=== PATIENT | female | born 1960 | race Caucasian/White ===

== ENCOUNTER 2024-01-30 11:37 | Emergency (ER) | payer OTHER, SELFPAY ==
[2024-01-30 11:38] VITALS: BP 165/89
--- NOTE | 2024-01-30 12:04 | ED.GENMED ---
History of Present Illness
General
Chief Complaint: Flank Pain
Time Seen by Provider: 01/30/24 11:50
History of Present Illness
History of Present Illness:
63-year-old female presents to the emergency department for evaluation of right flank pain that has been ongoing for the past 3 days, had cloudy urine earlier this week but this is since resolved. No fevers or chills. Does not feel comparable to
past kidney stone. Denies any nausea, vomiting, or diarrhea
Past History
Past History
ED Past Medical History: Fibromyalgia, GERD, HTN, Hypercholesterolemia, NIDDM, Psychiatric (Anxiety) and Other (Endometriosis, irritable bowel disease, chronic back pain)
ED Past Surgical History: , Orthopedic and Other (Adhesions)
Social History
Tobacco: Smoker
Alcohol: None
Drug: None
Personal:
Living: with family
Employment: Employed
Family History
Family History: Diabetes; Negative CAD
Review of Systems
Review of Systems
Allergies reviewed?: Yes
All Other Systems: ROS reviewed and negative except as documented in HPI and ROS
Phy Exam
Physical Exam
Physical Exam:
GEN: Well appearing, NAD, WDWN
HEENT: Oral mucosa moist, no scleral icterus
Cardiac: Regular rate
Lung: No respiratory distress, no tachypnea
Abdomen: Soft, grossly nontender to the anterior abdomen. No CVA tenderness however there is point tenderness to the right lumbar paraspinous musculature
MSK: No gross deformity or injuries
Skin: Good color, no pallor or jaundice, no rashes
Neuro: AO x3, moves all extremities freely
Psych: Calm, cooperative
Course
Orders/Labs/Results
Orders:
Orders
01/30/24 12:04
CT Abd/pel Without Iv Or Oral Urgent
Comment:
Reason For Exam: R flank pain hx of stones
Ketorolac [Toradol] 60 mg IM NOW STA
01/30/24 12:07
Urinalysis Reflex To Culture Urgent
Date Specimen was Collected: 01/30/24
Time Specimen was Collected: 12:06
Vital Signs
Initial and Last Documented VS:
Initial Vital Signs
Temp Pulse Resp BP Pulse Ox
98.0 F 99 18 165/89 98
01/30/24 11:38 01/30/24 11:38 01/30/24 11:38 01/30/24 11:38 01/30/24 11:38
Last Documented Vital Signs
Temp Pulse Resp BP Pulse Ox
98.0 F 87 16 158/97 98
01/30/24 11:38 01/30/24 13:55 01/30/24 13:55 01/30/24 13:55 01/30/24 13:55
MDM/Problems Addressed
MDM/Problems Addressed:
Urinalysis is bland and CT shows no evidence for obstructive uropathy at this time. Likely musculoskeletal in nature, patient's pain resolved after Toradol
*Critical Care Note
Total Time (30-74mins, 75-104mins- exclusive of procedures): Not Applicable
ED Attending Note
-
Portions of this chart may have been created with voice recognition software.� Occasional wrong word or��sound alike� substitutions may have occurred due to the inherent limitations of voice recognition software.
Discharge Plan
Departure
Patient Disposition: Home (Routine Discharge)
Date of Disposition: 01/30/24
Time of Disposition: 13:42
Patient with high blood pressure during this ER visit?: No
Discharge Problem:
Acute right flank pain
Instructions: Flank Pain (DC)
Prescriptions:
New
diclofenac sodium 75 mg tablet,delayed release (DR/EC)
75 mg PO BID PRN (Reason: Pain) Qty: 20 0RF
No Action
citalopram 20 MG tablet
40 mg PO DAILY
atorvastatin 40 MG tablet
40 mg PO HS
trazodone 100 MG tablet
100 mg PO HS
canagliflozin [Invokana] 100 MG tablet
100 mg PO DAILY
alprazolam 0.25 MG tablet
0.25 mg PO Q8HPRN PRN (Reason: anxiety)
Patient Comments:
11/08/2020: last filled 10/20/20, 30 tabs for 30 days from [facility]
amlodipine 5 MG tablet
5 mg PO DAILY
aspirin 81 MG tablet,chewable
81 mg PO DAILY
cholecalciferol (vitamin D3) 2,000 UNITS tablet
2,000 units PO DAILY
cephalexin 500 MG capsule
500 mg PO BID Qty: 10 0RF
tramadol 50 MG tablet
50 mg PO Q8 PRN (Reason: pain) Qty: 20 0RF
phenazopyridine 100 MG tablet
100 mg PO BID Qty: 30 0RF
Referrals:
Italo Pompa MD [Family Provider] -
Activity Restrictions/Additional Instructions:
Follow up with your primary care doctor if symptoms persist
Interventions
Interventions:
*Risk Screen - Suicide Last Done: 01/30/24 11:38
*General Assessment Last Done: 01/30/24 11:38
*Neglect/Abuse Screening Last Done: 01/30/24 11:38
ED- Fall Risk Assessment Last Done: 01/30/24 13:56
*ED COVID-19 Vaccine History Last Done: 01/30/24 11:38
*Nursing Disposition Last Done: 01/30/24 13:56
ED-Female Genitourinary Assessment Last Done: 01/30/24 12:13
Discharge Date and Time
Discharge Date/Time: 01/30/24 13:57
Print Language: MEXICAN
[2024-01-30] MEDS: TORADOL 60 MG IM (12:10)
[2024-01-30 13:12] LABS: Urine Albumin Negative (Neg - Trace); Urine Bilirubin Negative (Negative); Urine Character Clear (Clear); Urine Color Yellow; Urine Glucose Negative (Negative); Urine Ketone Negative (Negative); Urine Leukocyte Negative (Negative); Urine Nitrite Negative (Negative); Urine Occult Blood Negative (Negative); Urine Specific Gravity 1.015 (<1.030); Urine Urobilinogen Negative (Neg - 1+)
[2024-01-30 13:55] VITALS: BP 158/97
== END 2024-01-30 13:57 | disposition home or self-care (01) ==
LOC: EMR 11:37
PROVIDERS: Physician Assistant; EMERGENCY PHYSICIAN Emergency Medicine; FAMILY PHYSICIAN Family Medicine
DX: R10.9 Unspecified abdominal pain (principal); I10 Essential (primary) hypertension; E11.9 Type 2 diabetes mellitus without complications; E78.00 Pure hypercholesterolemia, unspecified; F41.9 Anxiety disorder, unspecified; K21.9 Gastro-esophageal reflux disease without esophagitis; K58.9 Irritable bowel syndrome, unspecified; G89.29 Other chronic pain; M54.9 Dorsalgia, unspecified; M79.7 Fibromyalgia; F17.200 Nicotine dependence, unspecified, uncomplicated; Z87.442 Personal history of urinary calculi; Z79.82 Long term (current) use of aspirin; Z88.5 Allergy status to narcotic agent; Z88.8 Allergy status to other drugs, medicaments and biological substances; Z88.6 Allergy status to analgesic agent; Z91.030 Bee allergy status
CPT/HCPCS: 99284; 96372; 74176; 81003

== ENCOUNTER 2024-04-10 16:53 | Emergency (ER) | payer OTHER, SELFPAY ==
[2024-04-10 16:58] VITALS: BP 152/89
--- NOTE | 2024-04-10 18:37 | ED.GENMED ---
History of Present Illness
General
Chief Complaint: Back Pain
Source: patient
Exam Limitations: none
Time Seen by Provider: 04/10/24 18:24
History of Present Illness
History of Present Illness:
63-year-old female presents with worsening lower back pain that radiates down the right leg over the past 4 days. She notes it hurts in the buttock down the outer aspect of the leg into the ankle. No bowel or bladder dysfunction. No perianal
anesthesia. No fever. She has a history of chronic pain. She is on Lyrica and hydrocodone as well as tramadol. She has taken these without any improvement of her discomfort.
Past History
Past History
ED Past Medical History: Fibromyalgia, GERD, HTN, Hypercholesterolemia, NIDDM, Psychiatric (Anxiety) and Other (Endometriosis, irritable bowel disease, chronic back pain)
ED Past Surgical History: , Orthopedic and Other (Adhesions)
Social History
Tobacco: Smoker
Alcohol: None
Drug: None
Personal:
Living: with family
Employment: Employed
Family History
Family History: Diabetes; Negative CAD
Phy Exam
Physical Exam
Physical Exam:
General: Well-appearing uncomfortable female no acute respiratory distress
HEENT: Normocephalic atraumatic
Musculoskeletal exam: No deformity to the legs. Good passive range of motion to the right leg mildly diffusely tender about the right leg
Neurologic: Good sensation right leg. Bilateral patellar reflexes are 2+. Good strength to the right leg
Skin is warm and intact
Course
Orders/Labs/Results
Orders:
Orders
04/10/24 18:36
Dexamethasone Sod Phosphate [Decadron] 10 mg IV NOW STA
HYDROmorphone [Dilaudid] 1 mg IV NOW STA
Ketorolac [Toradol] 15 mg IV NOW STA
04/10/24 20:47
diazePAM [Valium Injection] 5 mg IV NOW STA
Vital Signs
Initial and Last Documented VS:
Initial Vital Signs
Temp Pulse Resp BP Pulse Ox
98.3 F 90 20 152/89 96
04/10/24 16:58 04/10/24 16:58 04/10/24 16:58 04/10/24 16:58 04/10/24 16:58
Last Documented Vital Signs
Temp Pulse Resp BP Pulse Ox
98.3 F 90 20 148/110 91
04/10/24 16:58 04/10/24 16:58 04/10/24 16:58 04/10/24 19:00 04/10/24 19:30
MDM/Problems Addressed
Differential Diagnosis Includes:
Lower back pain that radiates down the right leg. Suspect radiculopathy. No signs of cauda equina. No fever to suggest infectious source.
Will attempt to help improve discomfort.
*Critical Care Note
Total Time (30-74mins, 75-104mins- exclusive of procedures): Not Applicable
Update Note
Update Note:
Patient did feel some relief after medicine. I suspect radiculopathy of the right lower extremity. Will prescribe prednisone to take at home. She will follow-up with her doctor as planned
ED Attending Note
-
Portions of this chart may have been created with voice recognition software.� Occasional wrong word or��sound alike� substitutions may have occurred due to the inherent limitations of voice recognition software.
Discharge Plan
Departure
Patient Disposition: Home (Routine Discharge)
Date of Disposition: 04/10/24
Time of Disposition: 20:47
Patient with high blood pressure during this ER visit?: No
Discharge Problem:
Acute lumbar radiculopathy
Instructions: Radiculopathy (DC)
Prescriptions:
New
prednisone 10 mg Tablet
See Rx Instructions .ROUTE .COMPLEX Qty: 30 0RF
Rx Instructions:
Take By Mouth:
40 mg daily x3 days, 30 mg daily x3 days,
20 mg daily x3 days, 10 mg daily x3 days.
No Action
citalopram 20 MG tablet
40 mg PO DAILY
atorvastatin 40 MG tablet
40 mg PO HS
trazodone 100 MG tablet
100 mg PO HS
canagliflozin [Invokana] 100 MG tablet
100 mg PO DAILY
alprazolam 0.25 MG tablet
0.25 mg PO Q8HPRN PRN (Reason: anxiety)
Patient Comments:
11/08/2020: last filled 10/20/20, 30 tabs for 30 days from [facility]
amlodipine 5 MG tablet
5 mg PO DAILY
aspirin 81 MG tablet,chewable
81 mg PO DAILY
cholecalciferol (vitamin D3) 2,000 UNITS tablet
2,000 units PO DAILY
cephalexin 500 MG capsule
500 mg PO BID Qty: 10 0RF
tramadol 50 MG tablet
50 mg PO Q8 PRN (Reason: pain) Qty: 20 0RF
phenazopyridine 100 MG tablet
100 mg PO BID Qty: 30 0RF
diclofenac sodium 75 mg tablet,delayed release (DR/EC)
75 mg PO BID PRN (Reason: Pain) Qty: 20 0RF
Referrals:
Izzy Dupree PA-C [Family Provider] -
Activity Restrictions/Additional Instructions:
Take prednisone as directed. Continue other current medications. Follow-up as planned with your doctor
Interventions
Interventions:
*Risk Screen - Suicide Last Done: 04/10/24 18:52
*General Assessment Last Done: 04/10/24 16:58
*Neglect/Abuse Screening Last Done: 04/10/24 18:52
ED- Fall Risk Assessment Last Done: 04/10/24 18:52
*ED COVID-19 Vaccine History Last Done: 04/10/24 18:52
ED-Musculoskeletal Assessment Last Done: 04/10/24 18:52
Discharge Date and Time
Print Language: JAPANESE
[2024-04-10 18:52] VITALS: BMI 30.6
[2024-04-10 18:54] VITALS: BP 123/87
[2024-04-10 19:00] VITALS: BP 148/110
[2024-04-10] MEDS: DILAUDID 1 MG IV (19:02)
[2024-04-10] MEDS: TORADOL 15 MG IV (19:04)
[2024-04-10] MEDS: DECADRON 10 MG IV (19:06)
[2024-04-10 20:00] VITALS: BP 125/56
[2024-04-10] MEDS: VALIUM INJECTION 5 MG IV (21:02)
[2024-04-10 21:06] VITALS: BP 140/76
== END 2024-04-10 21:06 | disposition home or self-care (01) ==
LOC: EMR 16:53
PROVIDERS: EMERGENCY PHYSICIAN Emergency Medicine; FAMILY PHYSICIAN Physician Assistant
DX: M54.16 Radiculopathy, lumbar region (principal)
CPT/HCPCS: 99284; 96374; 96375 ×3

== ENCOUNTER 2024-09-13 16:08 | Emergency (ER) | payer OTHER, SELFPAY ==
[2024-09-13 16:22] VITALS: BP 138/84
[2024-09-13 16:46] LABS: % Basophils 0.7 % (0-2); % Eosinophils 0.8 % (0-6); % Immature Granulocytes 0.2 % (0-0.5); % Lymphocytes 20.2 % (20.5-51.1); % Monocytes 6.9 % (1.7-9.3); % Neutrophils 71.2 % (42.2-75.2); Absolute Basophils 0.1 10^3/uL (0-0.2); Absolute Eosinophils 0.1 10^3/uL (0-0.7); Absolute Lymphocytes 2.2 10^3/uL (1.2-3.4); Absolute Monocytes 0.8 10^3/uL (0.1-0.6); Absolute Neutrophils 7.8 10^3/uL (1.4-6.5); Hematocrit 46.6 % (37.0-47.0); Hemoglobin 15.8 g/dL (12.0-16.0); Mean Corp Hgb Conc. 33.9 g/dL (33.0-37.0); Mean Corpuscular Hgb 30.6 pg (27.0-31.0); Mean Corpuscular Volume 90.1 fL (81.0-99.0); Mean Platelet Volume 9.1 fL (7.4-10.4); Nucleated Red Blood Cells % 0 %; Platelet Count 421 10^3/uL (130-400); Red Blood Cell Count 5.17 10^6/uL (4.20-5.40); Red Cell Dist. Width 13.4 % (11.5-14.5)
[2024-09-13 16:59] LABS: Lipase 115 U/L (23-300)
[2024-09-13 18:23] VITALS: BP 147/75
--- NOTE | 2024-09-13 20:18 | ED.GENMED ---
History of Present Illness
General
Chief Complaint: Abdominal Pain
Source: patient and spouse
Time Seen by Provider: 09/13/24 19:54
History of Present Illness
History of Present Illness:
This patient is a 64-year-old female presents emergency department with complaints of feeling like her glands were 'swollen' in the throat area on Friday, now resolved. However, on she started to complain of extreme fatigue and just
feeling 'crappy'. She did go to work on Friday and Friday but continued to feel very tired. She also noted that she 'pulled my back' when she was bending over and has pain along the right lower back without radiation, numbness, tingling,
perianal anesthesia, motor weakness, or other complaints. Friday evening she took her Wegovy, and shortly after developed intense nausea which continues associated with a sensation that everything smells bad. She has had a loss of appetite and
very little to eat or drink since then and developed a small amount of vomiting this morning. She saw her doctor and when her primary pressed on her abdomen she was noted to be tender in the right upper quadrant. She states she does not have
abdominal pain unless it is palpated. Patient denies urinary symptoms, diarrhea, constipation, dizziness, headache, chest pain, shortness of breath, or other complaints.
Past History
Past History
ED Past Medical History: Fibromyalgia, GERD, HTN, Hypercholesterolemia, NIDDM, Psychiatric (Anxiety) and Other (Endometriosis, irritable bowel disease, chronic back pain)
ED Past Surgical History: , Orthopedic and Other (Adhesions)
Social History
Tobacco: Smoker
Alcohol: None
Drug: None
Personal:
Living: with family
Employment: Employed
Family History
Family History: Diabetes; Negative CAD
Phy Exam
Physical Exam
Physical Exam:
GENERAL: Alert , in no apparent distress
EYE: pupils equal and reactive
NECK: Supple, no significant adenopathy.
ENT: o/p clr, mm slightly dry
CARDIAC: Regular rate and rhythm .
LUNGS: Clear breath sounds bilaterally, no acute respiratory distress, no wheezes/rales/rhonchi
ABDOMEN: Soft, minimal right upper quadrant tenderness, no r/g, no cvat
NEUROLOGICAL: Alert and oriented, no focal neuro deficits
SKIN: Warm and dry, skin intact.
MUSCULOSKELETAL: No edema, well perfused.
PSYCH: Normal and appropriate interaction.
Course
Orders/Labs/Results
Orders:
Orders
09/13/24 16:31
Complete Blood Count/With Diff Urgent
Lipase Urgent
Aubwe-Wihf-Zuimqzr Urgent
Comment: ADD ON
09/13/24 20:17
0.9% Sodium Chloride 500 ml [Nss] 500 ml IV BOLUS
HYDROmorphone [Dilaudid] 0.5 mg IV NOW STA
US Abdomen Complete/Upper Urgent
Comment:
Reason For Exam: upper pain
09/13/24 20:22
Ondansetron Injectable [Zofran] 4 mg .ROUTE .STK-MED ONE
Ondansetron Injectable [Zofran] 4 mg IV NOW STA
09/13/24 20:34
Basic Metabolic Panel Urgent
09/13/24 21:50
Add On- LAB Urgent
Tests Added?: LFT ([id number])
Abnormal Lab Results
09/13/24 09/13/24
16:31 20:34
WBC 11.0 H 10^3/uL
(4.8-10.8)
Plt Count 421 H 10^3/uL
(130-400)
Absolute Neuts (auto) 7.8 H 10^3/uL
(1.4-6.5)
Absolute Monos (auto) 0.8 H 10^3/uL
(0.1-0.6)
Lymphocytes % 20.2 L %
(20.5-51.1)
Carbon Dioxide 21 L mmol/L
(22-30)
09/13/24 16:31
09/13/24 20:34
Vital Signs
Initial and Last Documented VS:
Initial Vital Signs
Temp Pulse Resp BP Pulse Ox
98.3 F 86 16 138/84 98
09/13/24 16:22 09/13/24 16:22 09/13/24 16:22 09/13/24 16:22 09/13/24 16:22
Last Documented Vital Signs
Temp Pulse Resp BP Pulse Ox
97.8 F 99 16 147/75 98
09/13/24 18:23 09/13/24 18:23 09/13/24 18:23 09/13/24 18:23 09/13/24 18:23
*Critical Care Note
Total Time (30-74mins, 75-104mins- exclusive of procedures): Not Applicable
Update Note
Update Note:
Patient presents to the Emergency Department with ____nausea anorexia fatigue
Number and Complexity of Problems Addressed at the Encounter
� Chronic conditions affecting care:
� Acute Exacerbation and/or Progression of Chronic Illness:
� Differential Diagnosis includes: But not limited to Wegovy related symptoms, pancreatitis, cholelithiasis, etc. etc. etc.
Amount and/or Complexity of Data to be Reviewed and Analyzed
� I performed an independent evaluation of and my interpretation is:
EKG:
CT:
Xrays:
Laboratory Studies:nonspec leukocytosis, lipase wnl,
Other:Trace amount of gallbladder sludge, mobile. No secondary signs to suggest acute cholecystitis. No evidence for biliary ductal dilation.
Fatty infiltration of the liver.
Bilateral nephroliths. No evidence for pelvicalyceal dilation of either kidney. (PT RIA COPY OF RESULTS AND ADVISED TO F/U)
� Review of other/old records reveals:
� Clinical information was obtained by an independent historian: who is bedside
� Prescriptions/Medications Considered but not given:
� Further testing considered but not performed:lft' ordered, however hemolyzed timestwo...pt has known fatty liver...do nto suspect acute hepatitis (no fever,no exposure, no jaundice no apap ingestion etc)...will defer lft
testing for f/u given no sxs now and US report. Pt given copy of all.
Risk of Complications and/or Morbidity or Mortality of Patient Management
� Social determinants of health affecting care:
� Discussion with other providers (PCP, Hospitalists, Consultants, etc):
� Escalation of care including admission/observation vs risk of discharge considered:
ED Attending Note
-
Portions of this chart may have been created with voice recognition software.� Occasional wrong word or��sound alike� substitutions may have occurred due to the inherent limitations of voice recognition software.
Discharge Plan
Departure
Patient Disposition: Home (Routine Discharge)
Date of Disposition: 09/13/24
Time of Disposition: 22:02
Patient with high blood pressure during this ER visit?: Yes
Discharge Problem:
Abdominal pain, Nausea
Instructions: Nausea and Vomiting, Adult (DC), Abdominal Pain, BLOOD PRESSURE
Prescriptions:
New
ondansetron HCl 4 mg tablet
4 mg PO Q8H PRN (Reason: nausea and vomiting) Qty: 4 0RF
No Action
citalopram 20 MG tablet
40 mg PO DAILY
atorvastatin 40 MG tablet
40 mg PO HS
trazodone 100 MG tablet
100 mg PO HS
canagliflozin [Invokana] 100 MG tablet
100 mg PO DAILY
alprazolam 0.25 MG tablet
0.25 mg PO Q8HPRN PRN (Reason: anxiety)
Patient Comments:
11/08/2020: last filled 10/20/20, 30 tabs for 30 days from [facility]
amlodipine 5 MG tablet
5 mg PO DAILY
aspirin 81 MG tablet,chewable
81 mg PO DAILY
cholecalciferol (vitamin D3) 2,000 UNITS tablet
2,000 units PO DAILY
cephalexin 500 MG capsule
500 mg PO BID Qty: 10 0RF
tramadol 50 MG tablet
50 mg PO Q8 PRN (Reason: pain) Qty: 20 0RF
phenazopyridine 100 MG tablet
100 mg PO BID Qty: 30 0RF
diclofenac sodium 75 mg tablet,delayed release (DR/EC)
75 mg PO BID PRN (Reason: Pain) Qty: 20 0RF
prednisone 10 mg Tablet
See Rx Instructions .ROUTE .COMPLEX Qty: 30 0RF
Rx Instructions:
Take By Mouth:
40 mg daily x3 days, 30 mg daily x3 days,
20 mg daily x3 days, 10 mg daily x3 days.
Referrals:
Izzy Dupree PA-C [Family Provider] - Follow up in 2-3 days
Activity Restrictions/Additional Instructions:
PLEASE SEE ATTACHED LABS AND ULTRASOUND REPORT, BRING THIS TO YOUR DOCTOR FOR FURTHER FOLLOW-UP. IF YOU DEVELOP INCREASING NEW OR PERSISTENT PAIN, PERSISTENT VOMITING, FEVER, CHEST PAIN, SHORTNESS OF BREATH, OR OTHER WORRISOME SIGNS, PLEASE RETURN
TO THE ER IMMEDIATELY.
Interventions
Interventions:
*Risk Screen - Suicide Last Done: 09/13/24 16:22
*Neglect/Abuse Screening Last Done: 09/13/24 16:22
Discharge Date and Time
Print Language: ITALIAN
[2024-09-13] MEDS: ZOFRAN 4 MG IV (20:29)
[2024-09-13] MEDS: DILAUDID 0.5 MG IV (20:30)
[2024-09-13] MEDS: NSS 500 IV (20:32)
[2024-09-13 20:55] LABS: Blood Urea Nitrogen 12 mg/dl (7-17); Carbon Dioxide 21 mmol/L (22-30); Chloride 106 mmol/L (98-107); Glucose 83 mg/dl (70-99); Sodium 138 mmol/L (135-145); eGFR > 60.00
[2024-09-13 22:25] LABS: ALT (SGPT) 16 U/L (0-35); AST (SGOT) 29 U/L (14-36); Albumin 4.3 g/dl (3.5-5.0); Alkaline Phosphatase 131 U/L (38-126); Direct Bilirubin 0.2 mg/dl (0.0-0.4); Total Bilirubin 0.6 mg/dl (0.2-1.3); Total Protein 7.5 g/dl (6.3-8.2)
[2024-09-13 22:36] VITALS: BP 134/78
== END 2024-09-13 22:35 | disposition home or self-care (01) ==
LOC: EMR 16:08
PROVIDERS: Emergency Medicine; EMERGENCY PHYSICIAN Emergency Medicine; FAMILY PHYSICIAN Physician Assistant
DX: R10.10 Upper abdominal pain, unspecified (principal); K76.0 Fatty (change of) liver, not elsewhere classified; E11.9 Type 2 diabetes mellitus without complications; E78.00 Pure hypercholesterolemia, unspecified; I10 Essential (primary) hypertension; M79.7 Fibromyalgia; K21.9 Gastro-esophageal reflux disease without esophagitis; F17.200 Nicotine dependence, unspecified, uncomplicated
CPT/HCPCS: 99284; 96374; 96375; 76700; 80048; 80076; 83690; 85025